=== PATIENT | male | born 1980 | race Caucasian/White ===

== ENCOUNTER 2022-05-17 15:55 | Emergency (ER) | payer BC, MEDICAID ==
--- NOTE | 2022-05-17 16:09 | ED Physician Documentation ---
PD HPI CHEST PAIN - Stated complaint Stated Complaint: HIGH BP/VISSION BLUR - Chief complaint Chief Complaint: Cardiac - History obtained from History obtained from: Patient - History of Present Illness Timing - onset: How many hours ago (few), Today Timing - onset during: Exertion Timing - duration: Hours (The patient was doing outdoor activity with a tractor and some lifting and physical activity. He did note some left-sided chest pain. He also developed a feeling of pressure in his head and some visual scintillating scotomata in the upper aspect of both eyes. This was followed by left-sided GONZALEZ.) Timing - details: Gradual onset, Still present, Now resolved (He went in the house and rested and the headache persisted some and he felt slight shortness of breath. He discussed with his significant other and they headed towards the walk-in clinic by car. On route the chest discomfort was gone. Headache is minimal but still continues.) Quality: Aching, Sharp, Pain Location: Left chest (parasternal area) Radiation: No: Back, Abdominal Improved by: No: Rest Worsened by: No: Exertion, Inspiration, Movement Associated symptoms: Shortness of air, Other (He did have the feeling of pressure in his head and some mild headache with the chest discomfort. He took his blood pressure and noted to be 170s over 95. He has had blood pressure elevated at times in the past but typically with similar symptoms. He does not take his blood pressure when well.). No: Nausea, Vomiting, Feeling faint / dizzy, Palpitations, Cough Similar symptoms before: No diagnosis (He states he has had some similar left parasternal pain a couple of times in the last week, nonexertional the other times. Lasting just minutes to half an hour or so. No cough or wheeze.) Recently seen: Clinic (He went to the walk-in clinic and was referred to the ER after nonischemic EKG was obtained. Referred to the ER for more timely testing.) Review of Systems Constitutional: denies: Fever, Chills Eyes: denies: Loss of vision (but noted brief wiggly colors in upper aspect both eyes for several minutes, followed by left headache as scotomata abated.) Nose: denies: Rhinorrhea / runny nose, Congestion Throat: denies: Sore throat Cardiac: reports: Chest pain / pressure. denies: Palpitations, Pedal edema, Calf pain Respiratory: reports: Dyspnea. denies: Cough, Wheezing GI: denies: Abdominal Pain, Nausea, Vomiting Musculoskeletal: denies: Extremity swelling Neurologic: denies: Focal weakness, Numbness, Near syncope PD PAST MEDICAL HISTORY - Past Medical History Cardiovascular: None (He does not take his blood pressure when he is feeling well so unclear baseline. He states has been noted elevated when he is felt some pressure in his head or lightheaded.) Respiratory: None Neuro: Migraines (remote history of some infrequent migraines. none recently. ) Endocrine/Autoimmune: None - Past Surgical History General: Hiatal hernia repair - Present Medications Home Medications: Ambulatory Orders Medication Instructions Recorded Confirmed oxyCODONE/ACET 5/325 [Percocet 5 06/12/14 06/12/14 mg/325 mg] - Allergies Allergies/Adverse Reactions: Allergies Allergy/AdvReac Type Severity Reaction Status Date / Time niacin Allergy Rash Verified 05/17/22 16:05 - Social History Does the pt smoke?: No Smoking Status: Never smoker Does the pt drink ETOH?: No Does the pt have substance abuse?: No PD ED PE NORMAL - Vitals Vital signs reviewed: Yes - General General: Alert and oriented X 3, No acute distress, Well developed/nourished - HEENT HEENT: PERRL, EOMI, Other (fundi appear normal. ) - Neck Neck: Supple, no meningeal sign, No adenopathy - Cardiac Cardiac: RRR, No murmur - Respiratory Respiratory: Clear bilaterally, Other (no chestwall tenderness in area of pain. ) - Abdomen Abdomen: Soft, Non tender - Derm Derm: Normal color, Warm and dry - Extremities Extremities: No edema, No calf tenderness / cord - Neuro Neuro: Alert and oriented X 3, induction heat treater 2-12 intact, No motor deficit, No sensory deficit, Normal speech Results - Vitals Vitals: Vital Signs - 24 hr 05/17/22 05/17/22 15:59 16:04 Temperature 36.2 C L 36.5 C Heart Rate 63 63 Respiratory 16 16 Rate Blood Pressure 166/109 H 166/109 H O2 Saturation 100 100 Oxygen O2 Source Room air - EKG (time done) 16:10 Rate: Rate (enter#) (63) Rhythm: NSR [place]: Normal Intervals: Normal [place] QRS: Normal Ischemia: Normal ST segments. No: ST elevation c/w ischemia, ST depression - Labs Labs: Laboratory Tests 05/17/22 05/17/22 05/17/22 16:57 16:57 16:57 WBC 7.9 RBC 5.07 Hgb 14.5 Hct 44.6 MCV 88.0 MCH 28.6 MCHC 32.5 RDW 12.2 Plt Count 351 MPV 9.2 Neut # (Auto) 5.5 Lymph # (Auto) 1.8 [place] # (Auto) 0.4 Eos # (Auto) 0.1 Baso # (Auto) 0.1 Absolute Nucleated RBC 0.00 Nucleated RBC % 0.0 Sodium 136 Potassium 4.0 Chloride 99 L Carbon Dioxide 27 Anion Gap 10.0 BUN 13 Creatinine 0.9 Estimated GFR (MDRD) 93 Glucose 95 Calcium 9.4 Total Bilirubin 0.7 AST 19 ALT 21 Alkaline Phosphatase 52 Troponin I High Sens B-Natriuretic Peptide 6 Total Protein 7.8 Albumin 4.2 Globulin 3.6 Albumin/Globulin Ratio 1.2 Lipase 33 05/17/22 16:57 WBC RBC Hgb Hct MCV MCH MCHC RDW Plt Count MPV Neut # (Auto) Lymph # (Auto) [place] # (Auto) Eos # (Auto) Baso # (Auto) Absolute Nucleated RBC Nucleated RBC % Sodium Potassium Chloride Carbon Dioxide Anion Gap BUN Creatinine Estimated GFR (MDRD) Glucose Calcium Total Bilirubin AST ALT Alkaline Phosphatase Troponin I High Sens 2.8 B-Natriuretic Peptide Total Protein Albumin Globulin Albumin/Globulin Ratio Lipase - Rads (name of study) chest xray Radiology: Prelim report reviewed, EMP read indepedently (no acute findings.), See rad report PD Medical Decision Making - ED course Complexity details: reviewed results, considered differential, d/w patient Reviewed Lab Results: To evaluate for potential significant causes of his chest pain, I did order the EKG, chest x-ray, troponin and BNP. These resulted as normal and so exclude more significant heart and lung causes. Consider musculoskeletal. He had some visual scintillating scotomata in his eyes followed by a headache. No focal deficits. His exam appears normal here and fundal exam is normal as well. Normal neurologic. The character of the symptoms for that sound migraine. He did check his blood pressure when he was having the symptoms and noted it elevated. It has decreased on its own without specific treatment here. He does not know his baseline blood pressure when he is feeling well. He should monitor that over the short-term and follow-up with his primary care to decide if any blood pressure medicine is indicated. At this point I would not want to Ms. have his blood pressure too low so I would hold off at this point. He is feeling well here after just some Tylenol and ibuprofen. Considered was a head CT but he had no focal deficits no red flags to suggest the need for that. Departure - Departure Disposition: 01 Home, Self Care Clinical Impression: Chest discomfort, Elevated blood pressure reading, Headache Condition: Stable Record reviewed to determine appropriate education?: Yes Instructions: ED Chest Pain Atypical Unkn Cause Comments: Your EKG, chest x-ray, blood tests are normal here which in particular exclude: Heart attack, heart failure, collapsed lung, pneumonia, kidney problems or liver problems. Its unclear the cause of your chest discomfort. More likely musculoskeletal in you could try some ibuprofen or naproxen or Tylenol for it. Your blood pressure was elevated and has come down without treatment and is now 138/100. The bottom number is still a little elevated but it is otherwise improved well enough that I would be reluctant to start any blood pressure medicines without there being more of a trend. Check your blood pressure twice daily over the next week or so and see if its consistently high or high normal. Follow-up with your primary care regarding it. Your visual changes and headache sound likely to be a migraine type headache in the character of it. He can Tylenol ibuprofen if needed for any further episodes. Follow-up with your primary care if recurring similar episodes as they can give you more specific migraine type medicines.
[2022-05-17] MEDS ORDERED: IBUPROFEN 600 MG TABLET PO STA (16:34)
--- NOTE | 2022-05-17 16:52 | XRAY Report ---
PROCEDURE: Chest 1 View X-Ray INDICATIONS: Chest Pain TECHNIQUE: One view of the chest was acquired. COMPARISON: None. FINDINGS: Surgical changes and devices: None. Lungs and pleura: No pleural effusions or pneumothorax. Lungs are clear. Mediastinum: Mediastinal contours appear normal. Heart size is normal. Bones and chest wall: No suspicious bony lesions. Overlying soft tissues appear unremarkable. IMPRESSION: No acute cardiopulmonary pathology. Reviewed by: Shantanu Khoury MD on 05/17/2022 4:51 PM PST Approved by: Shantanu Khoury MD on 05/17/2022 4:51 PM PST Station ID: [id number]
--- OUTSIDE RECORDS SUMMARY | 2022-05-17 17:03 | EXTERNAL MEDICAL SUMMARY RPT | Continuity of Care Document ---
:1980 Author Organization [facility] Address [address] [place] [address] Phone Care Team Providers Name Role Phone Unavailable Unavailable Unavailable Octavio Witt Md Unavailable Unavailable Allergies No information. Encounters No information. Functional Status No information. Immunizations No information. Medications date description facility 2022-05-17 00:00 [facility] 2022-05-17 00:00 No Known Medications [facility] Problems date description facility 2022-05-17 00:00 Chest pain [facility] 2022-05-17 00:00 Unspecified chest pain [facility] 2022-05-17 00:00 Chest pain, unspecified [facility] Procedures date description facility 2022-05-17 00:00 Visit Code Hold [facility] 2022-05-17 00:00 EKG [facility] Results/Labs No information. Social History date description facility 2022-05-17 00:00 Former smoker [facility] Vital Signs date measurement value units 2022-05-17 00:00 BMI 35.10 kg/m2 2022-05-17 00:00 BP_diastolic 105 mmHg 2022-05-17 00:00 BP_systolic 172 mmHg 2022-05-17 00:00 heart_rate 85 /min 2022-05-17 00:00 height_metric 172.72 cm 2022-05-17 00:00 height_standard 68 in 2022-05-17 00:00 respiration_rate 17 /min 2022-05-17 00:00 temperature_metric 36.11 C 2022-05-17 00:00 temperature_standard 97 F 2022-05-17 00:00 weight_metric 104.33 kg 2022-05-17 00:00 weight_standard 230 lb
[2022-05-17 17:04] LABS: BASOPHILS # (AUTO) 0.1 10^3/uL (0.0-0.1); BASOPHILS % (AUTO) 0.6 %; EOSINOPHILS # (AUTO) 0.1 10^3/uL (0.0-0.7); EOSINOPHILS % (AUTO) 0.8 %; HCT - HEMATOCRIT 44.6 % (42.0-52.0); HGB - HEMOGLOBIN 14.5 g/dL (14.0-18.0); LYMPHOCYTES # (AUTO) 1.8 10^3/uL (1.5-3.5); LYMPHOCYTES % (AUTO) 23.4 %; MEAN CORPUSCULAR HEMOGLOBIN 28.6 pg (27.0-31.0); MEAN CORPUSCULAR HGB CONC 32.5 g/dL (32.0-36.0); MEAN PLATELET VOLUME 9.2 fL (7.4-11.4); MONOCYTES # (AUTO) 0.4 10^3/uL (0.0-1.0); MONOCYTES % (AUTO) 5.3 %; NEUTROPHILS # (AUTO) 5.5 10^3/uL (1.5-6.6); NEUTROPHILS % (AUTO) 69.6 %; PLT - PLATELET COUNT 351 10^3/uL (130-450); RED BLOOD COUNT 5.07 10^6/uL (4.70-6.10); RED CELL DISTRIBUTION WIDTH 12.2 % (12.0-15.0); WHITE BLOOD COUNT 7.9 x10^3/uL (4.8-10.8)
[2022-05-17 17:16] LABS: ALBUMIN 4.2 g/dL (3.2-5.5); ALBUMIN/GLOBULIN RATIO 1.2 (1.0-2.2); BILIRUBIN,TOTAL 0.7 mg/dL (0.2-1.0); CALCIUM 9.4 mg/dL (8.5-10.3); CREATININE 0.9 mg/dL (0.6-1.2); TOTAL PROTEIN 7.8 g/dL (6.7-8.2)
[2022-05-17 17:56] VITALS: BP 130/96
== END 2022-05-17 17:55 | disposition home or self-care (01) ==
LOC: ED 15:55
DX: R07.89 Other chest pain (principal); R03.0 Elevated blood-pressure reading, without diagnosis of hypertension; R51.9 Headache, unspecified; H53.453 Other localized visual field defect, bilateral
CPT/HCPCS: 36415; 71045; 80053; 83690; 83880; 84484; 85025; 93005; 99284; A9270

== ENCOUNTER 2022-08-14 10:37 | Outpatient (CLI) | payer BC ==
--- NOTE | 2022-08-14 11:35 | CARDIAC PROCEDURE NOTE ---
Stress Test Report Service Date: 08/14/22 Service Time: 11:00 Ordering Provider: Kelsea Moreno ARNP Indication for Test: Assess episodic non-exertional chest pain episodes, in the setting of (primarily separate) intermittent elevation of blood pressures. Significant Medical History: Tim has been generally healthy in his adult life, though has experienced episodes of elevated blood pressure, sometimes associated with visual changes (interpreted as scotomata) and (usually) separately, intermittent episodes of sharp chest pain. He was evaluated in April for an episode at which both hypertension and chest pain were present, at which time an EKG was nonischemic and troponin negative. He was seen in follow-up at the [facility], where he continued to describe intermittent elevation of blood pressure and some intermittent, always nonexertional, sharp left-sided mid chest pains. When having the pain episodes he notes that palpation worsens the discomfort and there are no cardiovascular concomitants, such as dyspnea, diaphoresis, palpitations or lightheadedness. 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 He plans to get the boat out of [facility] in about 3 weeks from now and will return there a few weeks after that for an late spring and summer extended fishing season. He has not had limitation of his work activities by the above mentioned symptoms. He is not especially active when not working and is encouraged to increase his aerobic activity. He is monitoring blood pressure at home with a new arm blood pressure cuff, having learned that the wrist cuff that he was previously using appeared unreliable. Cardiac Risk Factors: Positive for longstanding use of chewing tobacco (with intermittent periods of abstinence and attempts to quit altogether); probably positive for hypertension (though has not required medication treatment as of yet) and family history (an uncle with a "heart attack" in his 60's); no known history of hyperlipidemia or diabetes. Type of Stress Test: ETT with Echocardiography Procedure: -Exercise Treadmill Test- After signing informed consent, the patient underwent echo imaging at rest and then performed treadmill exercise using a Jason protocol. The patient exercised for 9 minutes 15 seconds and achieved a peak heart rate of 169 (93 percent predicted maximum heart rate for age), and an estimated workload of 10.5 METS. The test was terminated due to fatigue, shortness of breath and leg achiness. Resting heart rate: 79 Peak heart rate: 169 Normal response to exercise. Resting BP: 142/92 Peak BP: 214/107 Hypertensive at rest with physiologic increase in systolic BP and abnormal increase in diastolic BP in response to exercise. Rhythm during exercise: Sinus rhythm throughout with very rare, isolated PACs. Symptoms: He described NO chest discomfort or ocular symptoms. EKG at rest showed normal sinus rhythm with an incomplete right bundle branch block pattern; there was borderline abnormal precordial R-wave progression with R wave magnitude 2.5 mm in lead V2 and 1.5 mm in V3, raising concern for possible electrode reversal but proper position was confirmed. No resting repolarization abnormalities present. EKG at peak stress showed no ischemia by EKG criteria. In Recovery heart rate rapdidly and normally decreased towards baseline levels, with persistent elevation of BP. Echo imaging, performed at rest and with stress, will be reported separately. Rush Shell MD, was present throughout this treadmill stress study and supervised it in its entirety. Summary: 1) Exercise tolerance moderately reduced for age as evidenced by JARRELL of 23%. 2) Borderline abnormal resting EKG, but with interpretable ST-T pattern. 3) Adequate level of exercise was achieved on this treadmill stress test. 4) Hypertensive at presentation (146/88 supine) and standing prior to initiation of exercise (142/92) with physiologic increase in systolic BP and abnormal increase in diastolic BP in response to exercise. BP remained persistently elevated through 5 minutes of post-stress monitoring. 5) No ischemic changes by EKG criteria were seen at peak stress. 6) Echo image interpretation reveals normal left ventricular size and systolic function, with appropriate hyperdynamic augmentation of all segments with exercise, with increase of left ventricular ejection fraction, indicating no evidence of prior infarct or inducible ischemia. There were no abnormalities of LV wall thickness, valve morphology or elevated estimated right ventricular/pulmonary artery systolic pressure detected on baseline screening. See separate report for more details. Conclusions and Recommendations: 1) Patient's description of his chest discomfort episodes suggests musculoskeletal origin (? intercostal muscle spasm) and recommendations were made for intervention with ice/heat and/or topicals (e.g aspirin, voltaren or CBD ointments). No evidence of an ischemic basis for chest discomfort episodes was obtained. 2) He reports that both of his parents are on anti-hypertensive treatment, and given BPs obtained before, during and after the exercise period, it is likely that he is hypertensive and may qualify for anti-hypertensive medical treatment. He was advised to continue to obtain BPs when calm at various times of the day using his arm BP cuff and bring the values obtained, as well as the cuff itself (to confirm its accuracy) to a follow up visit with Ms Moreno, as the basis for further consideration of the need for anti-hypertensive medication treatment. 3) He was also encouraged to initiate walking at an active pace several times weekly (at least 150 minutes in divided segments) to improve conditioning and potentially forestall the need for anti-hypertensive medication treatment.
[2022-08-14 12:46] LABS: CHOL/HDL RATIO 4.9 (<5.0); CHOLESTEROL 265 mg/dL; HDL CHOLESTEROL 54 mg/dL; LDL CHOLESTEROL,CALCULATED 184 mg/dL; LDL/HDL RATIO 3.4 (<3.6); TRIGLYCERIDES 137 mg/dL; VLDL CHOLESTEROL 27 mg/dL
[2022-08-14 14:15] LABS: ESTIMATED AVERAGE GLUCOSE 108 mg/dL (70-100); HEMOGLOBIN A1c% 5.4 % (4.27-6.07)
[2022-08-15 16:08] LABS: HCV AB Non Reactive (Non Reactive); HIV SCREEN 4TH GENERATION Non Reactive (Non Reactive)
== END 2022-08-14 10:38 | disposition home or self-care (01) ==
LOC: DI 10:37
PROVIDERS: ATTEND Nurse Practitioner Acute Care
DX: R07.9 Chest pain, unspecified (principal); R94.31 Abnormal electrocardiogram [ECG] [EKG]; R03.0 Elevated blood-pressure reading, without diagnosis of hypertension; F17.220 Nicotine dependence, chewing tobacco, uncomplicated; Z82.49 Family history of ischemic heart disease and other diseases of the circulatory system; Z13.220 Encounter for screening for lipoid disorders; Z13.1 Encounter for screening for diabetes mellitus; Z11.4 Encounter for screening for human immunodeficiency virus [HIV]
CPT/HCPCS: 36415; 80061; 83036; 83721; 86803; 87389; 93350

== ENCOUNTER 2022-10-01 09:55 | Emergency (ER) | payer BC ==
[2022-10-01 10:13] VITALS: BP 158/104
--- NOTE | 2022-10-01 10:37 | XRAY Report ---
PROCEDURE: Foot 3 View LT INDICATIONS: Pain L great toe/foot TECHNIQUE: 3 views of the foot were acquired. COMPARISON: None. FINDINGS: Bones: No fractures or dislocations. No suspicious bony lesions. Soft tissues: No suspicious soft tissue calcifications or masses. IMPRESSION: No acute bony abnormality. Reviewed by: Mikey Andrade MD on 10/01/2022 10:36 AM PDT Approved by: Mikey Andrade MD on 10/01/2022 10:36 AM PDT Station ID: [id number]
--- NOTE | 2022-10-01 11:21 | ED Physician Documentation ---
PD HPI LOWER EXT INJURY - Stated complaint Stated Complaint: LT FOOT PX,SWELLING, - Chief complaint Chief Complaint: Ext Problem - History obtained from History obtained from: Patient - Additional information Additional information: PT c/o plantar pain involving L foot after doing yard work and stepping on a shovel in flip-flops 2 days ago. He states that he didn't have a distinct injury, but woke up the next morning with a searing pain just behind his 1st MTP joint. He states it hurts to bear weight. No h/o gout. No other complaints at this time. 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 PD PAST MEDICAL HISTORY - Past Medical History Cardiovascular: None (He does not take his blood pressure when he is feeling well so unclear baseline. He states has been noted elevated when he is felt some pressure in his head or lightheaded.) Respiratory: None Neuro: Migraines (remote history of some infrequent migraines. none recently. ) Endocrine/Autoimmune: None - Past Surgical History General: Hiatal hernia repair - Present Medications Home Medications: Ambulatory Orders Medication Instructions Recorded Confirmed oxyCODONE/ACET 5/325 [Percocet 5 15 06/12/14 mg/325 mg] HYDROcod/ACETAM 5/325 [Molt 5/325] 1 - 2 tablet PO Q6H PRN #10 tablet 10/01/22 predniSONE [Deltasone] 10 mg PO [id number] #42 tab 10/01/22 - Allergies Allergies/Adverse Reactions: Allergies Allergy/AdvReac Type Severity Reaction Status Date / Time niacin Allergy Rash Verified 10/01/22 10:12 - Social History Does the pt smoke?: No Smoking Status: Never smoker Does the pt drink ETOH?: No Does the pt have substance abuse?: No PD ED PE NORMAL - Vitals Vital signs reviewed: Yes - General General: Alert and oriented X 3, No acute distress, Well developed/nourished - HEENT HEENT: Atraumatic, PERRL - Neck Neck: Supple, no meningeal sign - Cardiac Cardiac: Strong equal pulses - Respiratory Respiratory: No respiratory distress - Derm Derm: Normal color, Warm and dry, No rash - Extremities Extremities: No deformity, Normal ROM s pain, No edema, Other (TTP L foot sole just proximal to 1st MTP joint. No deformity. No erythema or induration. No joint swelling.) - Neuro Neuro: Alert and oriented X 3 - Psych Psych: Normal mood, Normal affect Results - Vitals Vitals: Vital Signs - 24 hr 10/01/22 10:08 Temperature 37.0 C Heart Rate 90 Respiratory 16 Rate Blood Pressure 158/104 H O2 Saturation 99 Oxygen O2 Source Room air - Rads (name of study) L foot XR series Relevant Findings:: Final report received, See rad report (neg) PD Medical Decision Making - ED course Complexity details: reviewed results, re-evaluated patient, considered differential, d/w patient, d/w family ED course: I d/w pt that I feel the most likely scenario, all things considered, is focused plantar fasciitis, especially with the history of digging with sandals that offer poor support. We have discussed wearing supportive shoes/boots, taking a steroid taper and ibuprofen, and analgesia for breakthrough pain. Departure - Departure Disposition: 01 Home, Self Care Clinical Impression: Plantar fasciitis of left foot Condition: Stable Instructions: ED Plantar Fasciitis Prescriptions: predniSONE [Deltasone] 10 mg PO [id number] #42 tab HYDROcod/ACETAM 5/325 [Molt 5/325] 1 - 2 tablet PO Q6H PRN #10 tablet PRN Reason: Pain Comments: Your x-ray series looks good and there is no evidence of infection at this time. Your symptoms could be caused by gout, although usually this causes a red, swollen joint which you do not have. You are tender at the back of your joint on the sole of your foot, which is suspicious for plantar fasciitis. Given that you have been digging with flip-flops, it is very possible that you have irritated the supportive tissue on the bottom of the foot and this could cause the symptoms you are having. The treatment for this is anti-inflammatories, which include ibuprofen and steroid, and pain medicine if needed. Heat and stretching are also helpful. You should also be sure to wear supportive shoes, especially if you are doing heavy work. Please follow-up with your doctor as needed. Your prescriptions have been electronically transmitted to the [facility] in [place]. Please pick them up today. Discharge Date/Time: 10/01/22 11:45
== END 2022-10-01 11:45 | disposition home or self-care (01) ==
LOC: ED 09:55
DX: M72.2 Plantar fascial fibromatosis (principal)
CPT/HCPCS: 99283

== ENCOUNTER 2022-10-02 12:21 | Outpatient (CLI) | payer BC | END 2022-10-02 12:22 | disposition home or self-care (01) | LOC: LAB 12:21 | PROVIDERS: ATTEND Nurse Practitioner Acute Care | DX: M25.572 Pain in left ankle and joints of left foot (principal) | CPT/HCPCS: 36415; 84550 ==

== ENCOUNTER 2023-06-01 17:31 | Emergency (ER) | payer BC ==
[2023-06-01 18:00] LABS: BASOPHILS % (AUTO) 0.5 %; EOSINOPHILS % (AUTO) 0.1 %; HCT - HEMATOCRIT 43.3 % (42.0-52.0); HGB - HEMOGLOBIN 14.5 g/dL (14.0-18.0); LYMPHOCYTES # (AUTO) 1.1 10^3/uL (1.5-3.5); LYMPHOCYTES % (AUTO) 14.9 %; MEAN CORPUSCULAR HEMOGLOBIN 28.7 pg (27.0-31.0); MEAN CORPUSCULAR HGB CONC 33.5 g/dL (32.0-36.0); MEAN CORPUSCULAR VOLUME 85.7 fL (80.0-94.0); MEAN PLATELET VOLUME 9.1 fL (7.4-11.4); MONOCYTES # (AUTO) 0.8 10^3/uL (0.0-1.0); MONOCYTES % (AUTO) 10.8 %; NEUTROPHILS # (AUTO) 5.5 10^3/uL (1.5-6.6); NEUTROPHILS % (AUTO) 73.4 %; PLT - PLATELET COUNT 343 10^3/uL (130-450); RED BLOOD COUNT 5.05 10^6/uL (4.70-6.10); WHITE BLOOD COUNT 7.4 x10^3/uL (4.8-10.8)
[2023-06-01 18:07] LABS: BILIRUBIN,URINE MODERATE (NEGATIVE); GLUCOSE, URINE (UA) NEGATIVE (NEGATIVE); KETONES,URINE (UA) 15 mg/dL (NEGATIVE); LEUKOCYTE ESTERASE, URINE NEGATIVE (NEGATIVE); NITRITE,URINE NEGATIVE (NEGATIVE); OCCULT BLOOD,URINE TRACE-INTA (NEGATIVE); PROTEIN,URINE >=300 mg/dL (NEGATIVE); UROBILINOGEN,URINE 1 (NORMAL) E.U./dL (NORMAL)
[2023-06-01] MEDS: SODIUM CHLORIDE 0.9% 1,000 ML IV STA ×2 (18:13)
[2023-06-01 18:17] LABS: ALBUMIN 3.9 g/dL (3.2-5.5); BILIRUBIN,TOTAL 0.4 mg/dL (0.2-1.0); CALCIUM 9.6 mg/dL (8.5-10.3); CREATININE 0.9 mg/dL (0.6-1.3); POTASSIUM 4.2 mmol/L (3.5-4.5); TOTAL PROTEIN 7.8 g/dL (6.4-8.9)
[2023-06-01 18:32] VITALS: O2SAT 95
--- NOTE | 2023-06-01 18:35 | ED Physician Documentation ---
PD HPI NVD - Stated complaint Stated Complaint: FEVER/MIGRAINE - Chief complaint Chief Complaint: Fever - History obtained from History obtained from: Patient, Family - History of Present Illness Timing - details: Gradual onset Pain level max: 8 Pain level now: 8 Associated symptoms: Fever, Abdominal pain Contributing factors: Sick contact - Additonal information Additional information: Patient is a 42-year-old male who presents to the emergency department with nausea, vomiting and diarrhea x 1 week. Has had intermittent fevers as well. Diffuse abdominal pain. No blood in the stool. Did have 1 episode of small amount of blood in the emesis after repeated vomiting. Has not taken anything for fever today. He was exposed to COVID. He also states that he cleaned a bilge pump and then went and ate food without thoroughly washing his hands prior to his symptoms starting. Review of Systems Constitutional: reports: Fever, Chills, Myalgias Ears: denies: Ear pain Nose: denies: Rhinorrhea / runny nose, Congestion Respiratory: reports: Cough GI: reports: Abdominal Pain (diffuse, crampy), Nausea, Vomiting, Diarrhea. denies: Hematemesis, Bloody / black stool : denies: Dysuria, Frequency, Hesitancy Skin: denies: Rash Musculoskeletal: denies: Neck pain, Back pain Neurologic: reports: Headache (has headache today, history of similar headaches.) PD PAST MEDICAL HISTORY - Past Medical History Past Medical History: Yes Cardiovascular: None Respiratory: None Neuro: Migraines Endocrine/Autoimmune: None Other Past Medical History: gout - Past Surgical History General: Hiatal hernia repair - Present Medications Home Medications: Ambulatory Orders Medication Instructions Recorded Confirmed Amox/Clav 875/125 [Augmentin] 1 tab PO Q12H #20 tablet 06/01/23 Doxycycline Monohydrate 100 mg PO BID #20 cap 06/01/23 HYDROcod/ACETAM 5/325 [[place] 5/325] 1 - 2 ea PO Q6H PRN #14 tablet 06/01/23 Ondansetron Odt [Zofran] 4 mg TL Q6H PRN #10 tablet 06/01/23 - Allergies Allergies/Adverse Reactions: Allergies Allergy/AdvReac Type Severity Reaction Status Date / Time niacin Allergy Rash Verified 06/01/23 17:44 - Social History Does the pt smoke?: No Smoking Status: Never smoker Does the pt drink ETOH?: No Does the pt have substance abuse?: No PD ED PE NORMAL - Vitals Vital signs reviewed: Yes - General General: Alert and oriented X 3, No acute distress - HEENT HEENT: Atraumatic, PERRL, EOMI, Ears normal, Moist mucous membranes, Pharynx benign - Neck Neck: Supple, no meningeal sign (Full range of motion of the neck without any pain), No bony TTP, No adenopathy, No JVD - Cardiac Cardiac: RRR, No murmur, Strong equal pulses - Respiratory Respiratory: No respiratory distress, Clear bilaterally - Abdomen Abdomen: Soft, Non tender, Non distended - Back Back: No CVA TTP, No spinal TTP - Derm Derm: Warm and dry, No rash - Extremities Extremities: No edema, No calf tenderness / cord - Neuro Neuro: Alert and oriented X 3 - Psych Psych: Normal mood, Normal affect Results - Vitals Vitals: Vital Signs - 24 hr 06/01/23 06/01/23 06/01/23 17:41 18:28 20:00 Temperature 39.3 C H 38.7 C H Heart Rate 123 H 113 H 95 Respiratory 20 18 16 Rate Blood Pressure 126/91 H 135/95 H 124/83 H O2 Saturation 100 95 95 06/01/23 22:00 Temperature 36.1 C L Heart Rate 71 Respiratory 15 Rate Blood Pressure 118/79 O2 Saturation 95 Oxygen O2 Source Room air - Labs Labs: Laboratory Tests 06/01/23 06/01/23 06/01/23 17:53 17:53 17:58 WBC 7.4 RBC 5.05 Hgb 14.5 Hct 43.3 MCV 85.7 MCH 28.7 MCHC 33.5 RDW 13.0 Plt Count 343 MPV 9.1 Neut # (Auto) 5.5 Lymph # (Auto) 1.1 L [place] # (Auto) 0.8 Eos # (Auto) 0.0 Baso # (Auto) 0.0 Absolute Nucleated RBC 0.00 Nucleated RBC % 0.0 Sodium 131 L Potassium 4.2 Chloride 94 L Carbon Dioxide 26 Anion Gap 11.0 BUN 11 Creatinine 0.9 Estimated GFR (MDRD) 93 Glucose 107 H Calcium 9.6 Total Bilirubin 0.4 AST 22 ALT 24 Alkaline Phosphatase 74 Total Protein 7.8 Albumin 3.9 Globulin 3.9 Albumin/Globulin Ratio 1.0 Lipase 12 Urine Color DARK YELLOW Urine Clarity HAZY Urine pH 6.0 Ur Specific [place] 1.025 Urine Protein >=300 H Urine Glucose (UA) NEGATIVE Urine Ketones 15 H Urine Occult Blood TRACE-INTA Urine Nitrite NEGATIVE Urine Bilirubin MODERATE H Urine Urobilinogen 1 (NORMAL) Ur Leukocyte Esterase NEGATIVE Urine RBC 0-5 Urine WBC 0-3 Ur Squamous Epith Cells RARE Squamous Urine Bacteria Moderate H Urine Mucus Marked Strands Ur Microscopic Review INDICATED Urine Culture Comments NOT INDICATED Nasal Adenovirus (PCR) Nasal B. parapertussis DNA (PCR) Nasal Coronavir 229E PCR Nasal Coronavir HKU1 PCR Nasal Coronavir NL63 PCR Nasal Coronavir OC43 PCR Nasal Enterovir/Rhinovir PCR Nasal Influenza B PCR Nasal Influenza A PCR Nasal Parainfluen 1 PCR Nasal Parainfluen 2 PCR Nasal Parainfluen 3 PCR Nasal Parainfluen 4 PCR Nasal RSV (PCR) Nasal B.pertussis DNA PCR Nasal C.pneumoniae (PCR) [place] Human Metapneumo PCR Nasal M.pneumoniae (PCR) Nasal SARS-CoV-2 (PCR) 06/01/23 18:01 WBC RBC Hgb Hct MCV MCH MCHC RDW Plt Count MPV Neut # (Auto) Lymph # (Auto) [place] # (Auto) Eos # (Auto) Baso # (Auto) Absolute Nucleated RBC Nucleated RBC % Sodium Potassium Chloride Carbon Dioxide Anion Gap BUN Creatinine Estimated GFR (MDRD) Glucose Calcium Total Bilirubin AST ALT Alkaline Phosphatase Total Protein Albumin Globulin Albumin/Globulin Ratio Lipase Urine Color Urine Clarity Urine pH Ur Specific [place] Urine Protein Urine Glucose (UA) Urine Ketones Urine Occult Blood Urine Nitrite Urine Bilirubin Urine Urobilinogen Ur Leukocyte Esterase Urine RBC Urine WBC Ur Squamous Epith Cells Urine Bacteria Urine Mucus Ur Microscopic Review Urine Culture Comments Nasal Adenovirus (PCR) NOT DETECTED Nasal B. parapertussis DNA (PCR) NOT DETECTED Nasal Coronavir 229E PCR NOT DETECTED Nasal Coronavir HKU1 PCR NOT DETECTED Nasal Coronavir NL63 PCR NOT DETECTED Nasal Coronavir OC43 PCR NOT DETECTED Nasal Enterovir/Rhinovir PCR NOT DETECTED Nasal Influenza B PCR NOT DETECTED Nasal Influenza A PCR NOT DETECTED Nasal Parainfluen 1 PCR NOT DETECTED Nasal Parainfluen 2 PCR NOT DETECTED Nasal Parainfluen 3 PCR NOT DETECTED Nasal Parainfluen 4 PCR NOT DETECTED Nasal RSV (PCR) NOT DETECTED Nasal B.pertussis DNA PCR NOT DETECTED Nasal C.pneumoniae (PCR) NOT DETECTED [place] Human Metapneumo PCR NOT DETECTED Nasal M.pneumoniae (PCR) NOT DETECTED Nasal SARS-CoV-2 (PCR) NOT DETECTED PD Medical Decision Making - ED course Complexity details: reviewed results, re-evaluated patient, considered differential, d/w patient, d/w family ED course: Patient with pneumonia and nausea and vomiting diarrhea. We will place on Augmentin and doxycycline. No hypoxia. No respiratory distress. Headache resolved, fever resolved. Myalgias resolved. Tolerating p.o.'s without difficulty. Abdomen is soft, nontender nondistended on serial exam. No evidence of meningitis. No indication for lumbar puncture. Symptoms ongoing x 1 week. Patient is very well-appearing, nontoxic. Patient and family counseled regarding signs and symptoms for which I believe and urgent re-evaluation would be necessary. Patient with good understanding of and agreement to plan and is comfortable going home at this time This document was made in part using voice recognition software. While efforts are made to proofread this document, sound alike and grammatical errors may occur. Departure - Departure Disposition: 01 Home, Self Care Clinical Impression: Gastroenteritis Pneumonia Qualifiers: Pneumonia type: due to unspecified organism Laterality: unspecified laterality Lung location: unspecified part of lung Qualified Code(s): J18.9 - Pneumonia, unspecified organism Instructions: ED Gastroenteritis Bacterial, ED Pneumonia Adult Follow-Up: Kelsea Moreno ARNP [Primary Care Provider] - Prescriptions: Amox/Clav 875/125 [Augmentin] 1 tab PO Q12H #20 tablet Doxycycline Monohydrate 100 mg PO BID #20 cap HYDROcod/ACETAM 5/325 [[place] 5/325] 1 - 2 ea PO Q6H PRN #14 tablet PRN Reason: Pain Ondansetron Odt [Zofran] 4 mg TL Q6H PRN #10 tablet PRN Reason: Nausea / Vomiting Comments: Please take all antibiotics until gone. You appear to have a right-sided pneumonia today. Please make sure you are drinking plenty of fluids. You should be feeling better in the next 24 to 48 hours. Please return if you worsen. Your prescriptions were sent to [facility] in [place]. I am prescribing a short course of narcotic pain medication for you. These are potentially dangerous and addictive medications that should be used carefully. These medications may constipate you. Take an [id number] stool softener (docusate) twice daily with plenty of water while taking these medications. If you go 24 hours without a bowel movement, take [id number] miralax, per package instructions. Do not drink or drive while taking these medications. If you received narcotic or sedating medications while in the emergency department, do not drive for 24 hours. Store this medication in a safe, secure place and out of reach of children. It is a violation of federal law to give or sell this medication to another person or to use in a manner other than prescribed. The ED will not refill narcotic prescriptions, including prescriptions lost or stolen. To dispose of unwanted medications: 1. [facility] at [address] in [place] has a medication drop box. They accept prescription medications (in pill form) Saturday through Saturday 9:00 a.m. to 5:00 p.m. 2. [facility] [employer] [facility] accepts prescription medications (in pill form only) for disposal year round. Call for more information. 3. Contact the [facility] for the next [facility] sponsored prescription drug collection event. , [phone], or [phone]; Forms: PCP List Discharge Date/Time: 06/01/23 22:17
--- NOTE | 2023-06-01 18:40 | XRAY Report ---
PROCEDURE: Chest 1V INDICATIONS: cough, fever TECHNIQUE: One view of the chest was acquired. COMPARISON: 05/17/2022 FINDINGS: Surgical changes and devices: None. Lungs and pleura: Right lower lung infiltrate is seen, which is new compared to the prior. No pneumo thorax or pleural effusions can be seen. Mediastinum: Mediastinal contours appear normal. Heart size is normal. Bones and chest wall: No suspicious bony lesions. Overlying soft tissues appear unremarkable. IMPRESSION: Right lower lung infiltrate is now seen. Reviewed by: Faustino Mcghee MD on 06/01/2023 5:38 PM [facility] Approved by: Faustino Mcghee MD on 06/01/2023 5:38 PM [facility] Station ID: [id number]
[2023-06-01 18:45] LABS: CLARITY,URINE HAZY (CLEAR)
[2023-06-01 18:46] LABS: BACTERIA,URINE Moderate /HPF (None Seen); MUCUS,URINE Marked Strands; RBC,URINE 0-5 /HPF (0-5); SQUAMOUS EPITHELIAL CELL,UR RARE Squamous (<= Few); WBC,URINE 0-3 /HPF (0-3)
[2023-06-01 19:00] LABS: B. PARAPERTUSSIS- RESP PCR PAN NOT DETECTED; B. PERTUSSIS- RESP PCR PANEL NOT DETECTED; C. PNEUMONIAE- RESP PCR PANEL NOT DETECTED; CORONAVIRUS 229E-RESP PCR NOT DETECTED; CORONAVIRUS HKU1-RESP PCR NOT DETECTED; CORONAVIRUS NL63-RESP PCR NOT DETECTED; CORONAVIRUS OC43-RESP PCR NOT DETECTED; HUMAN METAPNEUMOVIRUS NOT DETECTED; INFLUENZA A- RESP PCR PANEL NOT DETECTED; INFLUENZA B - RESP PCR PANEL NOT DETECTED; M. PNEUMONIAE- RESP PCR PANEL NOT DETECTED; PARAINFLUENZA VIRUS 1 NOT DETECTED; PARAINFLUENZA VIRUS 2 NOT DETECTED; PARAINFLUENZA VIRUS 3 NOT DETECTED; PARAINFLUENZA VIRUS 4 NOT DETECTED; RHINOVIRUS/ENTEROVIRUS NOT DETECTED; RSV- RESP PCR PANEL NOT DETECTED; SARS-CoV-2 -RESP PCR PANEL NOT DETECTED
[2023-06-01] MEDS: ACETAMINOPHEN 1,000 MG/100 ML 1,000 MG/100 ML BAG IV ONE (19:07)
[2023-06-01] MEDS: KETOROLAC 30 MG/ML VIAL IVP STA (19:08)
[2023-06-01] MEDS: DROPERIDOL 5 MG/2 ML VIAL IVP STA (19:08)
[2023-06-01] MEDS: AMPICILLIN/SULBACTAM 3 GM in SODIUM CHLORIDE 0.9% MINIBAG 100 ML IV STA (20:13)
[2023-06-01] MEDS: HYDROmorphone 1 MG/ML CARPUJECT IVP STA (20:14)
[2023-06-01] MEDS: DOXYCYCLINE 100 MG TABLET PO STA (21:19)
[2023-06-01 22:10] VITALS: BP 118/79
== END 2023-06-01 22:17 | disposition home or self-care (01) ==
LOC: ED 17:31
DX: J18.9 Pneumonia, unspecified organism (principal); K52.9 Noninfective gastroenteritis and colitis, unspecified; Z20.822 Contact with and (suspected) exposure to COVID-19
CPT/HCPCS: 36415; 80053; 81001; 81003; 83690; 85025; 87086; 87633; 96365; 96366; 96368; 96375; 99284

== ENCOUNTER 2023-08-18 12:32 | Emergency (ER) | payer BC ==
[2023-08-18 12:48] VITALS: BP 138/99; O2SAT 98
--- NOTE | 2023-08-18 13:17 | XRAY Report ---
PROCEDURE: Ankle 3+V RT INDICATIONS: Trauma TECHNIQUE: 3 views of the ankle were acquired. COMPARISON: None. FINDINGS: Bones: No fractures or dislocations. Ankle mortise is normally aligned. No suspicious bony lesions . Corticated osseous fragment adjacent to the medial malleolus, likely sequela of remote injury. Soft tissues: No tibiotalar joint effusion. Lateral soft tissue swelling. Achilles tendon appears n ormal. IMPRESSION: Soft tissue swelling without fracture. Reviewed by: Jasbir Diaz MD on 08/18/2023 12:15 PM [facility] Approved by: Jasbir Diaz MD on 08/18/2023 12:15 PM [facility] Station ID: [id number]
--- NOTE | 2023-08-18 14:04 | ED Physician Documentation ---
PD HPI LOWER EXT INJURY - Stated complaint Stated Complaint: RT ANKLE INJ - Chief complaint Chief Complaint: Trauma Ext - History obtained from History obtained from: Patient - Additional information Additional information: Pt c/o R ankle pain after stepping in a hole yesterday and twisting his ankle. He states it hurts a lot to bear weight, all through his ankle. He denies feeling a "pop" or "crack". No prior injury to the ankle. No knee pain. No other injuries or complaints. PD PAST MEDICAL HISTORY - Past Medical History Past Medical History: Yes Cardiovascular: None Respiratory: None Neuro: Migraines Endocrine/Autoimmune: None GI: None : None Psych: None Musculoskeletal: None Derm: None - Past Surgical History General: Hiatal hernia repair - Present Medications Home Medications: Ambulatory Orders Medication Instructions Recorded Confirmed No Known Home Medications 08/18/23 08/18/23 - Allergies Allergies/Adverse Reactions: Allergies Allergy/AdvReac Type Severity Reaction Status Date / Time niacin Allergy Rash Verified 08/18/23 12:35 - Social History Does the pt smoke?: No Smoking Status: Never smoker Does the pt drink ETOH?: Yes ETOH Use: Beer Does the pt have substance abuse?: Yes Substance Use and Type: Marijuana - Immunizations Immunizations are current?: Yes - POLST Patient has POLST: No PD ED PE NORMAL - Vitals Vital signs reviewed: Yes - General General: No acute distress, Other (alert, appropriate) - HEENT HEENT: Atraumatic, EOMI, Moist mucous membranes - Neck Neck: Supple, no meningeal sign - Cardiac Cardiac: Strong equal pulses - Respiratory Respiratory: No respiratory distress - Derm Derm: Normal color, Warm and dry, No rash - Extremities Extremities: No deformity, No edema, Other (TTP diffusely over R ankle, no 5th MT tend, mod limitation of ROM ankle secondary to pain. No prox fib tend) - Neuro Neuro: No motor deficit, No sensory deficit - Psych Psych: Normal mood, Normal affect Results - Vitals Vitals: Vital Signs - 24 hr 08/18/23 12:35 Temperature 36.9 C Heart Rate 89 Respiratory 16 Rate Blood Pressure 138/99 H O2 Saturation 98 Oxygen O2 Source Room air - Rads (name of study) R ankle XR Relevant Findings:: Final report received, See rad report (neg) PD Medical Decision Making - ED course Complexity details: reviewed results, re-evaluated patient, considered differential, d/w patient ED course: XR neg. Air cast placed and crutches dispensed. Pt advised that if sx not starting to improve in the next couple of weeks, he should call his PCP to make a f/u appointment to discuss MRI. I have also advised the pt regarding activity limitations through healing process. Departure - Departure Disposition: 01 Home, Self Care Clinical Impression: Ankle sprain Qualifiers: Encounter type: initial encounter Involved ligament of ankle: unspecified ligament Laterality: right Qualified Code(s): S93.401A - Sprain of unspecified ligament of right ankle, initial encounter Condition: Stable Instructions: ED Sprain Ankle Comments: Your x-ray series has been read by the radiologist as negative. Most likely sprained your ankle. You may wear the Aircast and use the crutches as needed until you are able to walk on your ankle without pain. You may take ibuprofen and Tylenol as needed and use ice packs to help with some of the pain and infla mmation. If you are not noticing any improvement in the next couple of weeks, please call and make an appointment with your primary doctor to follow-up and discuss whether MRI is indicated. Please abstain from any high impact or strenuous activity on the ankle until you are able to walk without pain. Forms: PCP List Discharge Date/Time: 08/18/23 14:14
== END 2023-08-18 14:14 | disposition home or self-care (01) ==
LOC: ED 12:32
DX: S93.401A Sprain of unspecified ligament of right ankle, initial encounter (principal); X50.1XXA Overexertion from prolonged static or awkward postures, initial encounter
CPT/HCPCS: 99283